=== PATIENT | female | born 1990 | race Caucasian/White ===

== ENCOUNTER 2018-11-07 21:53 | Emergency (ER) | payer OTHER ==
[~2018-11-07] VITALS: Ht 170.2 cm; Wt 50.0 kg
[2018-11-07] MEDS ORDERED: FLUT16SP2 BOTHNARES (22:06)
[2018-11-07] MEDS ORDERED: METH4TAB3 PO (22:06)
[2018-11-07] MEDS ORDERED: AMOX-419 PO (22:06)
[2018-11-07 22:17] VITALS: BP 112/77
== END 2018-11-07 22:17 | disposition home or self-care (01) ==
LOC: ER 21:54
DX: J32.0 Chronic maxillary sinusitis (principal); Z79.2 Long term (current) use of antibiotics; Z79.899 Other long term (current) drug therapy
CPT/HCPCS: 99283

== ENCOUNTER 2019-09-29 06:41 | Emergency (ER) | payer OTHER ==
[~2019-09-29] VITALS: Ht 170.2 cm; Wt 45.0 kg
[~2019-09-29 06:41] MED LIST: FLUT16SP2 BOTHNARES; METH4TAB3 PO
[2019-09-29 06:44] VITALS: BP 132/80
[2019-09-29] MEDS ORDERED: CYCL-1 PO (06:59)
== END 2019-09-29 07:15 | disposition home or self-care (01) ==
LOC: ER 06:41
DX: S29.012A Strain of muscle and tendon of back wall of thorax, initial encounter (principal); M54.6 Pain in thoracic spine; Z79.899 Other long term (current) drug therapy; W18.39XA Other fall on same level, initial encounter; Y93.89 Activity, other specified; Y92.89 Other specified places as the place of occurrence of the external cause; Y99.8 Other external cause status
CPT/HCPCS: 99283

== ENCOUNTER 2020-04-17 21:51 | Outpatient (CLI) | payer BC ==
[~2020-04-17 21:51] MED LIST changes: +CYCL-1 PO
== END 2020-04-17 23:59 | disposition home or self-care (01) ==
LOC: LAB 21:51
DX: R10.2 Pelvic and perineal pain (principal)
CPT/HCPCS: 36415; 86695; 86696